=== PATIENT | male | born 1980 | race Caucasian/White ===

== ENCOUNTER 2024-04-01 02:06 | Emergency (ER) | payer OTHER, SELFPAY ==
--- NOTE | ~2024-04-01 | XR_ITS ---
Clinical Indication: Syncope PA and lateral views of the chest: Comparison: None Findings: The lungs are clear, aside from calcified granulomas, without evidence of focal consolidati on or pleural effusion. Cardiomediastinal silhouette is within normal limits. Calcified left hilar l ymph nodes are present. Bones and soft tissues are unremarkable. Impression: No acute pulmonary abnormality. Evidence of prior granulomatous disease. Reviewed, dictated and finalized at location . Impression: No acute pulmonary abnormality. Evidence of prior granulomatous disease.
--- NOTE | 2024-04-01 02:14 | ECG_ITS ---
Test Date: 2024-04-01 02:18:58 Measurements Intervals [place] Rate: 52 P: 38 CO: 213 QRS: -14 QRSD: 90 T: 5 QT: 460 QTc: 430 Interpretive Statements SINUS BRADYCARDIA WITH FIRST DEGREE AV BLOCK INCOMPLETE RIGHT BUNDLE BRANCH BLOCK BASELINE ARTIFACT- I, II, III, AVR, AVL, AVF, V1-V2 BORDERLINE ECG No previous ECG available for comparison Electronically Signed On 04-01-2024 06:47:23 CDT by Phill Rodriguez D.O.
[2024-04-01 02:28] LABS: Basophils Absolute Auto 0.1 K/mm3 (0.0-0.1); Basophils Percent Auto 0.8 % (0.2-1.2); Eosinophils Absolute Auto 0.1 K/mm3 (0-0.3); Eosinophils Percent Auto 1.3 % (0-4.4); Hematocrit 43.6 % (42.0-52.0); Hemoglobin 14.5 g/dL (14.0-18.0); Immature Granulocyte Absolute 0.01 K/mm3 (0.00-0.031); Immature Granulocyte Percent A 0.2 % (0-0.5); Lymphocytes Absolute Auto 2.37 K/mm3 (0.9-3.2); Lymphocytes Percent Auto 37.3 % (18.3-44.2); Mean Corpuscular HGB Conc 33.3 g/dl (32-36); Mean Corpuscular Hemoglobin 30.7 pg (26-34); Mean Corpuscular Volume 92.4 fl (80-100); Mean Platelet Volume 10.6 fl (7.4-10.4); Monocytes Absolute Auto 0.6 K/mm3 (0.1-0.6); Neutrophils Absolute Auto 3.3 K/mm3 (1.3-6.7); Neutrophils Percent Auto 51.4 % (45.5-73.1); Platelet Count Result 222 k/mm3 (150-375); Red Blood Count 4.72 M/mm3 (4.6-6.20); Red Cell Distribution Width 14.3 % (11.5-14.5); White Blood Count 6.4 K/mm3 (4.5-10.0)
[2024-04-01 02:41] LABS: Alanine Aminotransferase 21 U/L (6-50); Albumin Level 4.1 g/dL (3.5-5.1); Alkaline Phosphatase 59 U/L (38-126); Anion Gap 10 mmol/L (4-12); Aspartate Amino Transferase 21 U/L (17-59); Bilirubin,Total 0.7 mg/dL (0.2-1.3); Blood Urea Nitrogen 24 mg/dL (9-20); Calcium 9.5 mg/dL (8.4-10.2); Carbon Dioxide 27 mmol/L (22-30); Chloride 102 mmol/L (98-107); Estimated CRCL calculation 94 ml/min; Estimated Glomerular Filt Rate > 60; Glucose 134 mg/dL (65-110); Potassium 3.8 mmol/L (3.4-5.0); Sodium 139 mmol/L (137-145)
[2024-04-01 02:58] VITALS: BP 107/68; PULSE 48
[2024-04-01 03:00] VITALS: BP 103/64; PULSE 47
[2024-04-01 03:01] VITALS: BP 93/59; PULSE 58
[2024-04-01] MEDS: SODIUM CHLORIDE 0.9% IV 1,000 ML 999 ML IV CONT (03:13)
[2024-04-01 03:15] VITALS: BP 110/70; PULSE 52; RESP 15; O2SAT 98
--- NOTE | 2024-04-01 03:36 | ED.GENADULT ---
HPI - General Adult General Chief complaint: Syncope Stated complaint: syncope Time Seen by Provider: 04/01/24 02:20 History of Present Illness HPI narrative: Patient is a 43-year-old male who presents ER after an episode of syncope. Patient reports over last 2 days when he wakes up the morning he gets lightheaded when he stands up. Tonight he went to use the restroom. He sat down and thought he may need to have bowel movement. He then woke up on the floor. The heard a thud. He then stood up to walk back to the bedroom and had a 2nd episode of syncope. Each episode was very brief. No chest pain or chest pressure. No racing heart. Patient reports he has known bradycardia. He wore a Holter monitor for couple days that showed no significant events. Patient reports mild exposure to the heat. He thinks he has been eating and drinking normally. Related Data Allergies Allergy/AdvReac Type Severity Reaction Status Date / Time No Known Allergies Allergy Verified 04/01/24 02:12 Review of Systems Review of Systems: All systems reviewed & are unremarkable except as noted in HPI and below Constitutional: Constitutional: Reports no additional constitutional complaints ENT: Reports system reviewed and no additional complaints, except as documented Cardiovascular: Cardiovascular: Reports no additional cardiovascular complaints Respiratory: Respiratory: Reports no additional respiratory complaints Neurologic: Reports syncope, Denies headache(s), Denies focal weakness and Denies numbness PMFSH Past Medical History Medical History (Updated 04/01/24 @ 04:41 by Ovi Peoples MD) Healthy adult male Surgical History Surgical History (Updated 04/01/24 @ 03:38 by Ovi Peoples MD) No history of previous surgery Exam Narrative: GENERAL: Well-appearing, well-nourished, and in no acute distress. HEAD: Normocephalic, atraumatic. ENT: Mucous membranes moist. CHEST: Clear to auscultation. No respiratory distress. HEART: Bradycardic and regular. Normal peripheral pulses. ABDOMEN: Soft, nontender, nondistended. EXTREMITIES: Normal range of motion. No edema. SKIN: Warm, dry, no rash. NEURO: Alert and oriented x3. PSYCH: Normal mood and affect. Course Course Emergency Course: Patient resting comfortably. Hydrated. Patient was originally orthostatic. Patient reports he had been a bit constipated and straining to have bowel movement. Discussed dehydration given BUN to creatinine ratio. Increase fluid intake at home. Discharge. Vital Signs Vital signs: Vital Signs Pulse Rate 48 L 04/01/24 02:58 Blood Pressure 107/68 04/01/24 02:58 Pulse Rate 58 L 04/01/24 03:01 Blood Pressure 93/59 L 04/01/24 03:01 Medical Decision Making Vital Signs Vital Signs: Vital Signs Pulse Rate 48 L 04/01/24 02:58 Blood Pressure 107/68 04/01/24 02:58 Pulse Rate 58 L 04/01/24 03:01 Blood Pressure 93/59 L 04/01/24 03:01 Lab Data 04/01/24 02:21 04/01/24 02:21 Labs: Lab Results 04/01/24 Range/Units 02:21 WBC 6.4 (4.5-10.0) K/mm3 RBC 4.72 (4.6-6.20) M/mm3 Hgb 14.5 (14.0-18.0) g/dL Hct 43.6 (42.0-52.0) % MCV 92.4 (80-100) fl MCH 30.7 (26-34) pg MCHC 33.3 (32-36) g/dl RDW 14.3 (11.5-14.5) % Plt Count 222 (150-375) k/mm3 MPV 10.6 H (7.4-10.4) fl Immature Gran % (Auto) 0.2 (0-0.5) % Neut % (Auto) 51.4 (45.5-73.1) % Lymph % (Auto) 37.3 (18.3-44.2) % [place] % (Auto) 9.0 H (2.6-8.5) % Eos % (Auto) 1.3 (0-4.4) % Baso % (Auto) 0.8 (0.2-1.2) % Lymph # (Auto) 2.37 (0.9-3.2) K/mm3 [place] # (Auto) 0.6 (0.1-0.6) K/mm3 Eos # (Auto) 0.1 (0-0.3) K/mm3 Baso # (Auto) 0.1 (0.0-0.1) K/mm3 Abs Immat Gran (auto) 0.01 (0.00-0.031) K/mm3 Absolute Neuts (auto) 3.3 (1.3-6.7) K/mm3 Absolute Nucleated RBC 0.000 (0.0-0.012) K/mm3 Nucleated RBC % 0.0 (0.0-0.2) % Sodium 139 (137-145)
[2024-04-01 03:52] LABS: Troponin I < 0.012 ng/mL (0.000-0.034)
[2024-04-01 04:47] VITALS: BP 107/68; PULSE 50; RESP 14; O2SAT 97
== END 2024-04-01 04:48 | disposition home or self-care (01) ==
PROVIDERS: Emergency Provider Emergency Medicine; PCP Emergency Medicine
DX: I95.1 Orthostatic hypotension (principal); R00.1 Bradycardia, unspecified; I44.0 Atrioventricular block, first degree; I45.10 Unspecified right bundle-branch block
CPT/HCPCS: 36415; 71046; 80053; 84484; 85025; 93005; 96360; 99284; J7030